=== PATIENT | female | born 1970 | race Caucasian/White ===

== ENCOUNTER 2020-09-20 12:12 | Emergency (ER) | payer BC, SELFPAY ==
[2020-09-20] VITALS (10 sets, daily range): BP systolic 124–174; BP diastolic 67–95; PULSE 79–120; RESP 16–22; TEMP 37.3; O2SAT 98–100; BMI 30.7
--- NOTE | 2020-09-20 12:32 | ED.PSYCH ---
HPI - Psych <Dario MeyersZOE - Last Filed: 09/21/20 00:22> General Chief Complaint: Psychiatric Symptoms Stated Complaint: visual and auditory perez. Source: patient and EMS Mode of arrival: Ambulatory Limitations: no limitations History of Present Illness HPI Narrative: This is a 50-year-old female, nonsmoker, who has past medical history significant for hypothyroidism, right-sided breast cancer and tumor removal, botulism presents to ED with [facility] with chief complain of confusion and visual and auditory hallucinations. Patient reports after drinking a can of coconut water and showered she noticed the symptoms. Patient had conversations with people (just working people) and saw snowing. She also spoke with her daughter but the daughter reminded the patient the conversation never happened. Patient recently moved to a new apartment a couple of weeks ago and moved from [place]. Patient reports slightly increased in stress. She is wondering her symptoms are due to mold in the shower. Patient denies the conversation is commanding her to do things. She denies suicidal all homicidal thoughts. The patient thought she had conversations with EMT crew before they actually got there. The patient denies taking other supplements or medications. Patient feels as she is in and out of reality. Patient reports mild headache in right-sided and denies history of migraine headaches. Otherwise, denies weakness to extremities, speech difficulty, dysphagia, or balance difficulty. LMP about a week ago. Patient denies using illicit drugs. Review of Systems <Dario MeyersZOE - Last Filed: 09/21/20 00:22> Review of Systems Narrative: General: Denies fever, chills, fatigue, malaise, sweats. HEENT: Denies sinus pain, ear pain, sore throat, difficulty swallowing, dizziness. Respiratory: Denies dyspnea, cough, wheezing, hemoptysis, sputum. Cardiovascular: Denies chest pain, palpitations, orthopnea, edema. Gastrointestinal: Denies nausea, vomiting, abdominal pain, diarrhea, constipation, melena. : Denies dysuria, frequency, incontinence, hematuria, urinary retention. Musculoskeletal: Denies weakness, joint pain or bony pain. Skin: Denies rash, skin lesions, or other. Neurologic: Denies weakness, headache, numbness, change in speech, confusion, seizures, incoordination. Psychiatric: See HPI 12-point review of systems is negative except for those stated above. Patient History <ZOE Hunter - Last Filed: 09/21/20 00:22> Medical History (Updated 09/20/20 @ 14:57 by ZOE Hunter) Botulism (Acute) Breast cancer (Acute) Hypothyroidism (Acute) Surgical History (Updated 09/20/20 @ 12:42 by ZOE Hunter) History of bilateral tubal ligation (Acute) History of elbow surgery (Acute) Social History Smoking Status: Never smoker Smoking Status: Never smoker alcohol intake frequency: holidays/special occasions only Substance Use Type: does not use Exam <ZOE Hunter - Last Filed: 09/21/20 00:22> Narrative Exam Narrative: GEN: Alert, oriented x 3, well appearing and nourished, and in tears during interview and appears to be apprehensive. Head: Normal cephalic, atraumatic. No scalp or temporal tenderness, palpable mass or rash. EYES: Pupils are equal, round, and reactive to light and accommodation. Extraocular muscles are intact bilaterally. There is no subconjunctival hemorrhage, exudate and sclera non-icteric. ENT: Bilateral auditory canals and tympanic membranes clear. Hearing grossly intact. Nose without bleeding, purulent discharge or deviation. Facial sinuses nontender to palpate. Mucous membrane moist, no mucosal lesion. Throat without erythema, tonsillar hypertrophy or exudate. Uvula in midline, airway patent. Neck: Trachea in midline. No JVD, non-tender without lymphadenopathy. No masses or thyroid megaly. Supple, non-tender and no meningeal signs. CARDIAC: Normal regular rate and rhythm without murmurs, gallops, or rubs. No chest wall tenderness. No peripheral edema, cyanosis or pallor. Capillary refill is less than 2 seconds. RESPIRATORY: Lungs are clear to auscultate bilaterally. No cough, wheezes, rales, or rhonchi. No stridor, respiratory distress, increase work of breathing, or accessary muscle used. ABD: Abdomen soft, nontender and non-distended. No guarding or rebound tenderness to palpate. Bowel sounds are normal in all 4 quadrants. There is no palpable masses or organomegaly. EXT: Full painless ROM of all extremities with no loss of sensation, strength, effusion or edema. SKIN: Warm, dry, normal color for patient. No erythema, lesions or rash over visible areas. BACK: Nontender without deformity or crepitance. No flank tenderness. NEUROLOGICAL: Alert and oriented to place, time and person. Sensation and motor function intact bilaterally. No facial droops, dysphasia. PSYCHIATRIC: Good judgement and reason, without hallucinations, occasionally tearful and anxious. Patient is not suicidal. Initial Vital Signs Initial Vital Signs: Vital Signs Temperature 99.2 F 09/20/20 12:13 Pulse Rate 120 H 09/20/20 12:13 Respiratory Rate 16 09/20/20 12:13 Blood Pressure 174/90 H 09/20/20 12:13 Pulse Oximetry 98 09/20/20 12:13 <Андрей Dixon DO - Last Filed: 09/24/20 18:20> Initial Vital Signs Initial Vital Signs: Vital Signs Temperature 99.2 F 09/20/20 12:13 Pulse Rate 120 H 09/20/20 12:13 Respiratory Rate 16 09/20/20 12:13 Blood Pressure 174/90 H 09/20/20 12:13 Pulse Oximetry 98 09/20/20 12:13 Scores <ZOE Hunter - Last Filed: 09/21/20 00:22> GCS Rissa coma scale eye opening: Spontaneous Walker coma scale verbal response: Orientated Walker coma scale motor response: Obey commands Walker coma scale total score: 15 Course <ZOE Hunter - Last Filed: 09/21/20 00:22> Orders Ordered: ED Orders 09/20/20 12:33 Urine Drug Screen, Rapid Stat 09/20/20 12:40 Complete Blood Count AUTO DIFF Stat Comprehensive Metabolic Panel Stat Ethanol (ETOH) Stat Thyroid Stimulating Hormone Stat Troponin & CK Cardiac Panel Stat 09/20/20 12:54 CT head/brain wo con Stat 09/20/20 13:35 EKG-12 Lead Stat 09/20/20 13:46 XR chest 1V Stat Reevaluation(s) Reevaluation #1: Patient reports still thinks she is having conversation in her head but not witnessed this by staff sitting outside room 11 for 1:1 monitor for other patient in room 13. Vital Signs Vital signs: Vital Signs - 8 hr 09/20/20 12:13 09/20/20 12:28 09/20/20 12:30 Temperature 99.2 F Pulse Rate 120 H 100 H 95 H Respiratory Rate 16 20 Blood Pressure 174/90 H 154/79 H Pulse Oximetry 98 98 09/20/20 13:00 09/20/20 13:01 09/20/20 13:22 Temperature Pulse Rate 111 H 88 84 Respiratory Rate 18 18 Blood Pressure 150/86 H 124/67 Pulse Oximetry 99 100 100 09/20/20 13:30 Temperature Pulse Rate 79 Respiratory Rate 18 Blood Pressure 126/70 Pulse Oximetry 100 <Андрей Dixon DO - Last Filed: 09/24/20 18:20> Orders Ordered: ED Orders 09/20/20 12:33 Urine Drug Screen, Rapid Stat 09/20/20 12:40 Complete Blood Count AUTO DIFF Stat Comprehensive Metabolic Panel Stat Ethanol (ETOH) Stat Thyroid Stimulating Hormone Stat Troponin & CK Cardiac Panel Stat 09/20/20 12:54 CT head/brain wo con Stat 09/20/20 13:35 EKG-12 Lead Stat 09/20/20 13:46 XR chest 1V Stat Vital Signs Vital signs: Vital Signs - 8 hr 09/20/20 12:13 09/20/20 12:28 09/20/20 12:30 Temperature 99.2 F Pulse Rate 120 H 100 H 95 H Respiratory Rate 16 20 Blood Pressure 174/90 H 154/79 H Pulse Oximetry 98 98 09/20/20 13:00 09/20/20 13:01 09/20/20 13:22 Temperature Pulse Rate 111 H 88 84 Respiratory Rate 18 18 Blood Pressure 150/86 H 124/67 Pulse Oximetry 99 100 100 09/20/20 13:30 Temperature Pulse Rate 79 Respiratory Rate 18 Blood Pressure 126/70 Pulse Oximetry 100 [facility] - Psych <ZOE Hunter - Last Filed: 09/21/20 00:22> Differential Diagnosis Differential diagnosis: Likely other (hyperthyroidism, hepatic disorder, Intracrainal mass, infectious disease, anxiety) Medical Records Attestation: I reviewed the patient's medical records. Lab Data Attestation: I reviewed the patient's lab results. Result diagrams: 09/20/20 12:40 09/20/20 12:40 Labs: Lab Results 09/20/20 09/20/20 09/20/20 Range/Units 12:33 12:40 12:40 WBC 5.9 (4.5-11.0) X10^3/uL RBC 4.86 (4.0-5.2) X10^6/uL Hgb 13.5 (12.0-16.0) g/dL Hct 40.8 (36-46) % MCV 83.8 (80-100) fL MCH 27.8 (26-34) PG MCHC 33.2 (30-36) % RDW 13.5 (11.6-14.8) % Plt Count 251 (150-400) X10^3/uL Neut % (Auto) 70.4 (50-75) % Lymph % (Auto) 21.1 L (25-40) % [place] % (Auto) 7.1 (3-14) % Eos % (Auto) 0.9 L (2-4) % Baso % (Auto) 0.5 (0-2) % Neut # (Auto) 4200 (3824-5509) /uL Lymph # (Auto) 1200 (1278-3040) /uL [place] # (Auto) 400 (0-900) /uL Eos # (Auto) 100 (0-450) /uL Baso # (Auto) 0 (0-100) /uL Sodium 140 (137-145) mmol/L Potassium 4.6 (3.4-5.1) mmol/L Chloride 105 (98-107) mmol/L Carbon Dioxide 28 (22-32) mmol/L BUN 10 (7-17) mg/dL Creatinine 0.76 (0.52-1.04) mg/dL Estimated GFR > 60.0 (>60) mL/min BUN/Creatinine Ratio 13.2 (6-22) Glucose 105 H (70-100) mg/dL Calcium 9.5 (8.4-10.2) mg/dL Total Bilirubin 0.3 (0.2-1.3) mg/dL AST 22 (14-36) IU/L ALT 18 (<35) IU/L Alkaline Phosphatase 73 (38-126) U/L Total Creatine Kinase (30-135) U/L CK-MB (CK-2) CK-MB (CK-2) Rel Index Troponin I (0.01-0.034) ng/mL Total Protein 7.5 (6.3-8.2) g/dL Albumin 4.4 (3.5-5.0) g/dL Globulin 3.1 (1.7-4.1) g/dL Albumin/Globulin Ratio 1.4 (1.0-2.8) TSH (0.47-4.68) uIU/mL U Opiates 300ng/mL cut Negative (Negative) Ur Oxycodone Screen Negative (Negative) Urine Methadone Screen Negative (Negative) Ur Barbiturates Screen Negative (Negative) U Tricyclic Antidepress Negative (Negative) Ur Phencyclidine Scrn Negative (Negative) Ur Amphetamines Screen Negative (Negative) U Methamphetamines Scrn Negative (Negative) Ur MDMA Scrn (Ecstasy) Negative (Negative) U Benzodiazepines Scrn Negative (Negative) Urine Cocaine Screen Negative (Negative) U Marijuana (THC) Screen Negative (Negative) Ethyl Alcohol < 10 ( - 10) mg/dL 09/20/20 09/20/20 Range/Units 12:40 12:40 WBC (4.5-11.0) X10^3/uL RBC (4.0-5.2) X10^6/uL Hgb (12.0-16.0) g/dL Hct (36-46) % MCV (80-100) fL MCH (26-34) PG MCHC (30-36) % RDW (11.6-14.8) % Plt Count (150-400) X10^3/uL Neut % (Auto) (50-75) % Lymph % (Auto) (25-40) % [place] % (Auto) (3-14) % Eos % (Auto) (2-4) % Baso % (Auto) (0-2) % Neut # (Auto) (4211-8192) /uL Lymph # (Auto) (2364-5950) /uL [place] # (Auto) (0-900) /uL Eos # (Auto) (0-450) /uL Baso # (Auto) (0-100) /uL Sodium (137-145) mmol/L Potassium (3.4-5.1) mmol/L Chloride (98-107) mmol/L Carbon Dioxide (22-32) mmol/L BUN (7-17) mg/dL Creatinine (0.52-1.04) mg/dL Estimated GFR (>60) mL/min BUN/Creatinine Ratio (6-22) Glucose (70-100) mg/dL Calcium (8.4-10.2) mg/dL Total Bilirubin (0.2-1.3) mg/dL AST (14-36) IU/L ALT (<35) IU/L Alkaline Phosphatase (38-126) U/L Total Creatine Kinase 76 (30-135) U/L CK-MB (CK-2) TNP CK-MB (CK-2) Rel Index TNP Troponin I < 0.012 (0.01-0.034) ng/mL Total Protein (6.3-8.2) g/dL Albumin (3.5-5.0) g/dL Globulin (1.7-4.1) g/dL Albumin/Globulin Ratio (1.0-2.8) TSH 4.62 (0.47-4.68) uIU/mL U Opiates 300ng/mL cut (Negative) Ur Oxycodone Screen (Negative) Urine Methadone Screen (Negative) Ur Barbiturates Screen (Negative) U Tricyclic Antidepress (Negative) Ur Phencyclidine Scrn (Negative) Ur Amphetamines Screen (Negative) U Methamphetamines Scrn (Negative) Ur MDMA Scrn (Ecstasy) (Negative) U Benzodiazepines Scrn (Negative) Urine Cocaine Screen (Negative) U Marijuana (THC) Screen (Negative) Ethyl Alcohol ( - 10) mg/dL Point of Care Testing Test Results Negative Glucose POC 91 Urine Dip Bedside Urine Glucose Negative Bedside Urine Bilirubin - Negative Bedside Urine Ketone - Negative Urine Specific [place] 1.015 Bedside Urine Occult Blood - Negative Bedside Urine pH 6.0 Bedside Urine Protein - Negative Bedside Urine Leukocytes - Negative Esterase Imaging Data CT scan - head: Radiologist's Impression: [address] [address] [address] Scan Report Signed Patient: Roman Palacios#: [id number] : 1970Acct:[id number] Age/Sex: 50 / FDate of Service: 09/20/20 Loc: ED Accession Number: [id number] Procedure: CT head/brain wo con Ordering Provider: Dario Meyers PROCEDURE: CT HEAD/BRAIN WO CON INDICATIONS: Hallucinations TECHNIQUE: Noncontrast 4.5 mm thick angled axial sections acquired from the foramen magnum to the vertex, with coronal and sagittal reformats. For radiation dose reduction, the following was used: automated exposure control, adjustment of mA and/or kV according to patient size. COMPARISON: None. FINDINGS: Image quality: Excellent. CSF spaces: Basal cisterns are patent. No extra-axial fluid collections. Ventricles are normal in size and shape. Brain: No midline shift. No intracranial masses or hemorrhage. Ryan-white matter interface is normal. Skull and face: Calvarium and visualized facial bones are intact, without suspicious lesions. Sinuses: Visualized sinuses and mastoids are clear. IMPRESSION: No acute finding. Dictated by: Mike Pierre M.D. on 09/20/2020 at 13:10 Approved by: Mike Pierre M.D. on 09/20/2020 at 13:11 Chest x-ray: Radiologist's Impression: [place] [address] XRay Report Signed Patient: Roman Palacios#: [id number] : 1970Acct:[id number] Age/Sex: 50 / FDate of Service: 09/20/20 Loc: ED Accession Number: [id number] Procedure: XR chest 1V Ordering Provider: Dario Meyers PROCEDURE: XR CHEST 1V INDICATIONS: abnormal ekg TECHNIQUE: One view of the chest was acquired. COMPARISON: None. FINDINGS: Surgical changes and devices: None. Lungs and pleura: Lungs are clear. No pleural effusions or pneumothorax. Mediastinum: Mediastinal contours appear normal. Heart size is normal. Bones and chest wall: No suspicious bony lesions. Overlying soft tissues appear unremarkable. IMPRESSION: Mildly reduced inspiratory volume, no acute disease found. Dictated by: Win Curtis M.D. on 09/20/2020 at 14:20 Approved by: Win Curtis M.D. on 09/20/2020 at 14:20 ECG Data Attestation: I personally reviewed and interpreted this ECG as follows: Prior ECG tracings: not available for review Interpretation: Left bundle branch block rate at 77. Left dominant axis. MN interval 130, QRS duration 146, QT/QTC 396/448 MDM Narrative Medical decision making narrative: This is a 50-year-old female who was brought in by local EMS with feeling of sam-vu. Patient remembers having conversation with others and saw snowing today but turns out to be not. Patient's physical exam is unremarkable. Patient is alert and oriented x3 and appropriate. CT of head shows no acute findings for organic etiology. No indications for infection with normal white count. UDS was negative and denies taking substances or new medications. Liver function test was normal without hepatic abnormality. Patient has hypothyroidism and currently takes levothyroxine. TSH is within normal upper limit today of 4.62. Patient reports in the past thyroid medication had to be adjusted and increased due to confusion. Patient advised to follow-up with new primary care physician with TSH. EKG with left bundle-branch block. No previous EKGs available but patient states in the past she was told her cardiac rhythm is abnormal due to botulism. A copy of EKG from today provided to patient to follow-up with a new primary care physician. Patient recently [place] [facility] [place] and is concerned for mold in her house. Patient advised to f/u on evaluation of mold in her house, carbon monoxide if this is patient's concerns. Return precautions were discussed with patient verbalized understanding in agreement with the treatment plan. <Андрей Dixon, DO - Last Filed: 09/24/20 18:20> Lab Data Labs: Lab Results 09/20/20 09/20/20 09/20/20 Range/Units 12:33 12:40 12:40 WBC 5.9 (4.5-11.0) X10^3/uL RBC 4.86 (4.0-5.2) X10^6/uL Hgb 13.5 (12.0-16.0) g/dL Hct 40.8 (36-46) % MCV 83.8 (80-100) fL MCH 27.8 (26-34) PG MCHC 33.2 (30-36) % RDW 13.5 (11.6-14.8) % Plt Count 251 (150-400) X10^3/uL Neut % (Auto) 70.4 (50-75) % Lymph % (Auto) 21.1 L (25-40) % [place] % (Auto) 7.1 (3-14) % Eos % (Auto) 0.9 L (2-4) % Baso % (Auto) 0.5 (0-2) % Neut # (Auto) 4200 (0670-9869) /uL Lymph # (Auto) 1200 (9197-4216) /uL [place] # (Auto) 400 (0-900) /uL Eos # (Auto) 100 (0-450) /uL Baso # (Auto) 0 (0-100) /uL Sodium 140 (137-145) mmol/L Potassium 4.6 (3.4-5.1) mmol/L Chloride 105 (98-107) mmol/L Carbon Dioxide 28 (22-32) mmol/L BUN 10 (7-17) mg/dL Creatinine 0.76 (0.52-1.04) mg/dL Estimated GFR > 60.0 (>60) mL/min BUN/Creatinine Ratio 13.2 (6-22) Glucose 105 H (70-100) mg/dL Calcium 9.5 (8.4-10.2) mg/dL Total Bilirubin 0.3 (0.2-1.3) mg/dL AST 22 (14-36) IU/L ALT 18 (<35) IU/L Alkaline Phosphatase 73 (38-126) U/L Total Creatine Kinase (30-135) U/L CK-MB (CK-2) CK-MB (CK-2) Rel Index Troponin I (0.01-0.034) ng/mL Total Protein 7.5 (6.3-8.2) g/dL Albumin 4.4 (3.5-5.0) g/dL Globulin 3.1 (1.7-4.1) g/dL Albumin/Globulin Ratio 1.4 (1.0-2.8) TSH (0.47-4.68) uIU/mL U Opiates 300ng/mL cut Negative (Negative) Ur Oxycodone Screen Negative (Negative) Urine Methadone Screen Negative (Negative) Ur Barbiturates Screen Negative (Negative) U Tricyclic Antidepress Negative (Negative) Ur Phencyclidine Scrn Negative (Negative) Ur Amphetamines Screen Negative (Negative) U Methamphetamines Scrn Negative (Negative) Ur MDMA Scrn (Ecstasy) Negative (Negative) U Benzodiazepines Scrn Negative (Negative) Urine Cocaine Screen Negative (Negative) U Marijuana (THC) Screen Negative (Negative) Ethyl Alcohol < 10 ( - 10) mg/dL 09/20/20 09/20/20 Range/Units 12:40 12:40 WBC (4.5-11.0) X10^3/uL RBC (4.0-5.2) X10^6/uL Hgb (12.0-16.0) g/dL Hct (36-46) % MCV (80-100) fL MCH (26-34) PG MCHC (30-36) % RDW (11.6-14.8) % Plt Count (150-400) X10^3/uL Neut % (Auto) (50-75) % Lymph % (Auto) (25-40) % [place] % (Auto) (3-14) % Eos % (Auto) (2-4) % Baso % (Auto) (0-2) % Neut # (Auto) (4192-8493) /uL Lymph # (Auto) (2907-6714) /uL [place] # (Auto) (0-900) /uL Eos # (Auto) (0-450) /uL Baso # (Auto) (0-100) /uL Sodium (137-145) mmol/L Potassium (3.4-5.1) mmol/L Chloride (98-107) mmol/L Carbon Dioxide (22-32) mmol/L BUN (7-17) mg/dL Creatinine (0.52-1.04) mg/dL Estimated GFR (>60) mL/min BUN/Creatinine Ratio (6-22) Glucose (70-100) mg/dL Calcium (8.4-10.2) mg/dL Total Bilirubin (0.2-1.3) mg/dL AST (14-36) IU/L ALT (<35) IU/L Alkaline Phosphatase (38-126) U/L Total Creatine Kinase 76 (30-135) U/L CK-MB (CK-2) TNP CK-MB (CK-2) Rel Index TNP Troponin I < 0.012 (0.01-0.034) ng/mL Total Protein (6.3-8.2) g/dL Albumin (3.5-5.0) g/dL Globulin (1.7-4.1) g/dL Albumin/Globulin Ratio (1.0-2.8) TSH 4.62 (0.47-4.68) uIU/mL U Opiates 300ng/mL cut (Negative) Ur Oxycodone Screen (Negative) Urine Methadone Screen (Negative) Ur Barbiturates Screen (Negative) U Tricyclic Antidepress (Negative) Ur Phencyclidine Scrn (Negative) Ur Amphetamines Screen (Negative) U Methamphetamines Scrn (Negative) Ur MDMA Scrn (Ecstasy) (Negative) U Benzodiazepines Scrn (Negative) Urine Cocaine Screen (Negative) U Marijuana (THC) Screen (Negative) Ethyl Alcohol ( - 10) mg/dL Point of Care Testing Test Results Negative Glucose POC 91 Urine Dip Bedside Urine Glucose Negative Bedside Urine Bilirubin - Negative Bedside Urine Ketone - Negative Urine Specific [place] 1.015 Bedside Urine Occult Blood - Negative Bedside Urine pH 6.0 Bedside Urine Protein - Negative Bedside Urine Leukocytes - Negative Esterase Discharge Plan Departure Patient Disposition: Home Clinical Impression: Confusion Discharge Date/Time: 09/20/20 15:05 Instructions: Delirium Activity Restrictions/Additional Instructions: You have been diagnosed with [confusion. Head CT and Chest xray were negative for acute findings. NO indications for infection, electrolytes imbalance. Urine drug screen was negative. TSH today was 4.62. EKG shows left bundle branch block and were not able to compare since we do not have old EKG. Cardiac enzymes were negative. Physical exam were unremarkable.]. What to do: *Take your medications as directed. *Follow up with your primary care provider in 2-3 days, call for an appointment. Let them know you were seen in the ED and that we asked you to be seen in follow up. Please arrange primary care physician that you can follow-up with thyroid test. *Return to ED if you have any new, worsening, or concerning symptoms, such as [chest pain, breathing difficulty, fever, weakness to 1 side of body, severe headache, facial droops, speech difficulty, seizure activities, unable to tolerate fluids or any acute concerns]. Referrals: [facility] [Outside] <Андрей Dixon, - Last Filed: 09/24/20 18:20> Cosign ED Attending Elijah Attestation: Dr Dixon Co-Sign Statement: I was available for consultation during this patient's emergency department visit. This chart is signed by myself for administrative purposes only. I did not have direct contact with this patient during this visit. They were seen independently by the APC.
[2020-09-20 12:39] LABS: UR Morphine/Opiate cutoff 300 Negative (Negative); Ur Creatinine Normal (Normal); Ur Specific Gravity Normal (Normal); Urine Amphetamines Negative (Negative); Urine Barbiturates Negative (Negative); Urine Benzodiazepines Negative (Negative); Urine Cocaine Negative (Negative); Urine MDMA Negative (Negative); Urine Methadone Negative (Negative); Urine Methamphetamines Negative (Negative); Urine Oxycodone Negative (Negative); Urine Phencyclidine Negative (Negative); Urine Tetrahydrocannabinol Negative (Negative); Urine Tricyclic Antidepressant Negative (Negative); Urine pH Normal (Normal)
[2020-09-20 12:51] LABS: Add Manual Diff / Slide Review NO; Basophils Absolute Auto 0 /uL (0-100); Basophils Percent Auto 0.5 % (0-2); Eosinophils Absolute Auto 100 /uL (0-450); Eosinophils Percent Auto 0.9 % (2-4); Hematocrit 40.8 % (36-46); Hemoglobin 13.5 g/dL (12.0-16.0); Lymphocytes Absolute Auto 1200 /uL (1100-4500); Lymphocytes Percent Auto 21.1 % (25-40); Mean Corpuscular HGB Conc 33.2 % (30-36); Mean Corpuscular Hemoglobin 27.8 PG (26-34); Mean Corpuscular Volume 83.8 fL (80-100); Monocytes Absolute Auto 400 /uL (0-900); Monocytes Percent Auto 7.1 % (3-14); Neutrophils Absolute Auto 4200 /uL (1500-7000); Neutrophils Percent Auto 70.4 % (50-75); Platelet Count 251 X10^3/uL (150-400); Red Blood Cell Count 4.86 X10^6/uL (4.0-5.2); Red Cell Distribution Width 13.5 % (11.6-14.8); White Blood Cell Count 5.9 X10^3/uL (4.5-11.0)
--- NOTE | 2020-09-20 12:54 | DI.CT.S_ITS ---
PROCEDURE: CT HEAD/BRAIN WO CON INDICATIONS: Hallucinations TECHNIQUE: Noncontrast 4.5 mm thick angled axial sections acquired from the foramen magnum to the vertex, with coronal and sagittal reformats. For radiation dose reduction, the following was used: automated exposure control, adjustment of mA and/or kV according to patient size. COMPARISON: None. FINDINGS: Image quality: Excellent. CSF spaces: Basal cisterns are patent. No extra-axial fluid collections. Ventricles are normal in size and shape. Brain: No midline shift. No intracranial masses or hemorrhage. Ryan-white matter interface is normal. Skull and face: Calvarium and visualized facial bones are intact, without suspicious lesions. Sinuses: Visualized sinuses and mastoids are clear. IMPRESSION: No acute finding. Dictated by: Mike Pierre M.D. on 09/20/2020 at 13:10 Approved by: Mike Pierre M.D. on 09/20/2020 at 13:11
[2020-09-20 13:01] LABS: Alanine Aminotransferase 18 IU/L (<35); Albumin 4.4 g/dL (3.5-5.0); Albumin Globulin Ratio 1.4 (1.0-2.8); Alkaline Phosphatase 73 U/L (38-126); Aspartate Aminotransferase 22 IU/L (14-36); BUN Creatinine Ratio 13.2 (6-22); Bilirubin Total 0.3 mg/dL (0.2-1.3); Blood Urea Nitrogen 10 mg/dL (7-17); Calcium 9.5 mg/dL (8.4-10.2); Carbon Dioxide 28 mmol/L (22-32); Chloride 105 mmol/L (98-107); Estimated Glomerular Filt Rate > 60.0 mL/min (>60); Ethanol (ETOH) < 10 mg/dL; Globulin 3.1 g/dL (1.7-4.1); Glucose 105 mg/dL (70-100); HEMOLYSIS < 15 (0-50); Potassium 4.6 mmol/L (3.4-5.1); Sodium 140 mmol/L (137-145); Total Protein 7.5 g/dL (6.3-8.2)
--- NOTE | 2020-09-20 13:46 | DI.RAD.S_ITS ---
PROCEDURE: XR CHEST 1V INDICATIONS: abnormal ekg TECHNIQUE: One view of the chest was acquired. COMPARISON: None. FINDINGS: Surgical changes and devices: None. Lungs and pleura: Lungs are clear. No pleural effusions or pneumothorax. Mediastinum: Mediastinal contours appear normal. Heart size is normal. Bones and chest wall: No suspicious bony lesions. Overlying soft tissues appear unremarkable. IMPRESSION: Mildly reduced inspiratory volume, no acute disease found. Dictated by: Win Curtis M.D. on 09/20/2020 at 14:20 Approved by: Win Curtis M.D. on 09/20/2020 at 14:20
[2020-09-20 14:09] LABS: Creatine Kinase 76 U/L (30-135)
[2020-09-20 14:12] LABS: Thyroid Stimulating Hormone 4.62 uIU/mL (0.47-4.68)
[2020-09-20 14:22] LABS: Troponin I < 0.012 ng/mL (0.01-0.034)
== END 2020-09-20 15:05 | disposition home or self-care (01) ==
PROVIDERS: Emergency Provider Nurse Practitioner Family
DX: R41.0 Disorientation, unspecified (principal); R94.31 Abnormal electrocardiogram [ECG] [EKG]; R44.0 Auditory hallucinations; R44.1 Visual hallucinations
CPT/HCPCS: 36415; 70450; 71045; 80053; 80305; 80320; 81003; 81025; 82550; 82962; 84443; 84484; 85025; 93005; 99283; 99284

== ENCOUNTER 2020-09-30 15:43 | Emergency (ER) | payer BC, SELFPAY ==
[2020-09-30] VITALS (8 sets, daily range): BP systolic 130–158; BP diastolic 64–74; PULSE 69–80; RESP 17–24; O2SAT 98–100; BMI 31.4
--- NOTE | 2020-09-30 16:11 | DI.RAD.S_ITS ---
PROCEDURE: XR CHEST 1V INDICATIONS: left side chest pain TECHNIQUE: One view of the chest was acquired. COMPARISON: [facility], , XR CHEST 1V, 09/20/2020, 13:54. FINDINGS: Surgical changes and devices: None. Lungs and pleura: Lungs are clear. No pleural effusions or pneumothorax. Mediastinum: Mediastinal contours appear normal. Heart size is normal. Bones and chest wall: No suspicious bony lesions. Overlying soft tissues appear unremarkable. IMPRESSION: No acute cardiopulmonary process is seen. Dictated by: Toñito Gaines M.D. on 09/30/2020 at 15:46 Approved by: Toñito Gaines M.D. on 09/30/2020 at 15:46
--- NOTE | 2020-09-30 16:25 | ED.CHESTPAIN ---
HPI - Chest Pain <Dario MaoDeandra [facility] - Last Filed: 09/30/20 19:44> General Chief Complaint: Chest Pain Stated Complaint: sent by doc. work up for cardiac problem Time Seen by Provider: 09/30/20 16:03 Source: patient Mode of arrival: Ambulatory Limitations: no limitations History of Present Illness HPI narrative: This is a 50-year-old female, nonsmoker, who has past medical history significant for botulism, hypothyroidism, newly diagnosed with hypertension presents to ED was referred from new primary care provider Elizabeth Vyas for cardiac workup done. Patient reports she has been having left-sided near the sternal border discomfort daily for 5-6 months. Patient reports slight dyspnea with exertion as walking up stairs or long distance. Patient also reports dependent ankle swelling when she sits on a chair prolonged time. Patient reports when she rubs on affected side in her chest it improved her pain. Patient denies chest discomfort related to changing in position. Patient also reports lightheadedness all the time. Patient has not started her blood pressure medication at this time and is not able to recall blood pressure reading at the clinic today. Patient states I am not sure why I am here, I didn't want to come in and she contributes her symptoms to I think it's my anxiety since it has been going on for months and daily. Patient was seen on 09/20/2020 with confusion and sam vu like symptoms and had comprehensive work up done at that time including cardiac enzymes which were negative. Patient stated at that time, has history of abnormal EKG after the Botulism, affected my heart. Related Data Allergies Allergy/AdvReac Type Severity Reaction Status Date / Time Sulfa (Sulfonamide Allergy Verified 09/30/20 15:47 Antibiotics) Review of Systems <Dario MaoDeandra [employer] - Last Filed: 09/30/20 19:44> Review of Systems Narrative: General: Denies fever, chills, fatigue, malaise, sweats. HEENT: Denies sinus pain, ear pain, sore throat, difficulty swallowing, dizziness. Respiratory: Denies dyspnea, cough, wheezing, hemoptysis, sputum. Cardiovascular: See HPI Gastrointestinal: Denies nausea, vomiting, abdominal pain, diarrhea, constipation, melena. : Denies dysuria, frequency, incontinence, hematuria, urinary retention. Musculoskeletal: Denies weakness, joint pain or bony pain. Skin: Denies rash, skin lesions, or other. Neurologic: Denies weakness, headache, numbness, change in speech, confusion, seizures, incoordination. Psychiatric: No concerning psychosocial issues. 12-point review of systems is negative except for those stated above. Patient History <ZOE Hunter - Last Filed: 09/30/20 19:44> Medical History Botulism History of benign breast tumor Hypothyroidism Surgical History History of bilateral tubal ligation History of elbow surgery Social History Smoking Status: Never smoker Smoking Status: Never smoker alcohol intake frequency: a few times a week Substance Use Type: does not use Exam <ZOE Hunter - Last Filed: 09/30/20 19:44> Narrative Exam Narrative: GEN: Alert, oriented x 3, well appearing and nourished, and in no acute distress. Head: Normal cephalic, atraumatic. No scalp or temporal tenderness, palpable mass or rash. EYES: Pupils are equal, round, and reactive to light and accommodation. Extraocular muscles are intact bilaterally. There is no subconjunctival hemorrhage, exudate and sclera non-icteric. ENT: Hearing grossly intact. Nose without bleeding, purulent discharge or deviation. Mucous membrane moist, no mucosal lesion. Throat without erythema, tonsillar hypertrophy or exudate. Uvula in midline, airway patent. Neck: Trachea in midline. No JVD, non-tender without lymphadenopathy. No masses or thyroid megaly. Supple, non-tender and no meningeal signs. CARDIAC: Normal regular rate and rhythm without murmurs, gallops, or rubs. No chest wall tenderness. No peripheral edema, cyanosis or pallor. Capillary refill is less than 2 seconds. RESPIRATORY: Lungs are clear to auscultate bilaterally. No cough, wheezes, rales, or rhonchi. No stridor, respiratory distress, increase work of breathing, or accessary muscle used. ABD: Abdomen soft, nontender and non-distended. No guarding or rebound tenderness to palpate. Bowel sounds are normal in all 4 quadrants. There is no palpable masses or organomegaly. EXT: Full painless ROM of all extremities with no loss of sensation, strength, effusion or edema. SKIN: Warm, dry, normal color for patient. No erythema, lesions or rash over visible areas. BACK: Nontender without deformity or crepitance. No flank tenderness. NEUROLOGICAL: Alert and oriented to place, time and person. Sensation and motor function intact bilaterally. No facial droops, dysphasia. PSYCHIATRIC: Good judgement and reason, without hallucinations, abnormal affect or abnormal behaviors during the examination. Patient is not suicidal. Initial Vital Signs Initial Vital Signs: Vital Signs Pulse Rate 73 09/30/20 15:47 Respiratory Rate 18 09/30/20 15:47 Blood Pressure 158/74 H 09/30/20 15:47 Pulse Oximetry 100 09/30/20 15:47 <Edilma Loya DO - Last Filed: 10/02/20 18:41> Initial Vital Signs Initial Vital Signs: Vital Signs Pulse Rate 73 09/30/20 15:47 Respiratory Rate 18 09/30/20 15:47 Blood Pressure 158/74 H 09/30/20 15:47 Pulse Oximetry 100 09/30/20 15:47 Scores <ZOE Hunter - Last Filed: 09/30/20 19:44> GCS Rissa coma scale eye opening: Spontaneous Hinton coma scale verbal response: Orientated Rissa coma scale motor response: Obey commands Rissa coma scale total score: 15 HEART Score Heart Score history: Slightly Suspicious Heart Score EKG: Non-Specific repolarization disturbance Heart Score Age: 45-64 years old Heart Score risk factors: 1-2 risk factors Heart Score troponin: < or = to normal limit Heart Score Total: 3 Wells' Criteria for PE Clinical signs and symptoms of DVT: No PE is #1 Dx or equally likely: No Heart rate > 100: Yes Immobilization at least 3 days or surg in previous 4 weeks: No History of PE or DVT: No Hemoptysis: No Malignancy w/Treatment within 6 months or palliative: No Wells' PE Score total: 1.5 Course <ZOE Hunter - Last Filed: 09/30/20 19:44> Orders Ordered: Discontinued Medications Aspirin (Aspirin 81 Mg Chew Tab) 324 mg PO NOW ONE Stop: 09/30/20 16:12 Last Admin: 09/30/20 16:45 Dose: 324 mg Documented by: CVANCE Reevaluation(s) Reevaluation #1: Patient reports she is comfortable at this time and declined any medications. Patient expressing would like to leave ED since I don't know why I am here but advised for repeat at least one more Troponin to repeat in 2-hour and if this looks good then her PCP can follow up outpatiently for further cardiac work up. Time: 18:53 Vital Signs Vital signs: Vital Signs - 8 hr 09/30/20 15:47 09/30/20 17:33 09/30/20 19:07 Pulse Rate 73 72 71 Respiratory Rate 18 19 24 Blood Pressure 158/74 H 132/64 130/70 Pulse Oximetry 100 100 100 <Edilma Loya DO - Last Filed: 10/02/20 18:41> Orders Ordered: Discontinued Medications Aspirin (Aspirin 81 Mg Chew Tab) 324 mg PO NOW ONE Stop: 09/30/20 16:12 Last Admin: 09/30/20 16:45 Dose: 324 mg Documented by: CVANCE Vital Signs Vital signs: Vital Signs - 8 hr 09/30/20 15:47 09/30/20 17:33 09/30/20 19:07 Pulse Rate 73 72 71 Respiratory Rate 18 19 24 Blood Pressure 158/74 H 132/64 130/70 Pulse Oximetry 100 100 100 MDM - Chest Pain <ZOE Hunter - Last Filed: 09/30/20 19:44> Differential Diagnosis Differential diagnosis: Likely stable angina, unstable angina pectoris, atypical chest pain, costochondritis and other (IL, NSTEMI, anxiety, pericarditis) Medical Records Data Attestation: I reviewed the patient's medical records. Lab Data Attestation: I reviewed the patient's lab results. Result diagrams: 09/30/20 16:41 09/30/20 16:41 Labs: Lab Results 09/30/20 09/30/20 09/30/20 Range/Units 16:41 16:41 16:41 WBC 6.0 (4.5-11.0) X10^3/uL RBC 4.77 (4.0-5.2) X10^6/uL Hgb 13.3 (12.0-16.0) g/dL Hct 40.1 (36-46) % MCV 84.0 (80-100) fL MCH 27.8 (26-34) PG MCHC 33.1 (30-36) % RDW 13.5 (11.6-14.8) % Plt Count 228 (150-400) X10^3/uL Neut % (Auto) 61.2 (50-75) % Lymph % (Auto) 28.4 (25-40) % Hoke % (Auto) 8.4 (3-14) % Eos % (Auto) 1.5 L (2-4) % Baso % (Auto) 0.5 (0-2) % Neut # (Auto) 3700 (4934-4565) /uL Lymph # (Auto) 1700 (9777-2375) /uL Hoke # (Auto) 500 (0-900) /uL Eos # (Auto) 100 (0-450) /uL Baso # (Auto) 0 (0-100) /uL PT 11.6 (10.1-12.7) SECONDS INR 1.0 (0.9-1.3) APTT 34 (26.4-36.2) SECONDS D-Dimer (<230) ng/mL Sodium 137 (137-145) mmol/L Potassium 4.7 (3.4-5.1) mmol/L Chloride 102 (98-107) mmol/L Carbon Dioxide 31 (22-32) mmol/L BUN 14 (7-17) mg/dL Creatinine 0.74 (0.52-1.04) mg/dL Estimated GFR > 60.0 (>60) mL/min BUN/Creatinine Ratio 18.9 (6-22) Glucose 93 (70-100) mg/dL Calcium 9.5 (8.4-10.2) mg/dL Total Bilirubin 0.6 (0.2-1.3) mg/dL AST 33 (14-36) IU/L ALT 16 (<35) IU/L Alkaline Phosphatase 60 (38-126) U/L Total Creatine Kinase 68 (30-135) U/L CK-MB (CK-2) TNP CK-MB (CK-2) Rel Index TNP Troponin I 0.012 (0.01-0.034) ng/mL NT-Pro-B Natriuret Pep (<125) pg/mL Total Protein 7.7 (6.3-8.2) g/dL Albumin 4.4 (3.5-5.0) g/dL Globulin 3.3 (1.7-4.1) g/dL Albumin/Globulin Ratio 1.3 (1.0-2.8) Lipase 93 (23-300) U/L 09/30/20 09/30/20 09/30/20 Range/Units 16:41 16:41 18:55 WBC (4.5-11.0) X10^3/uL RBC (4.0-5.2) X10^6/uL Hgb (12.0-16.0) g/dL Hct (36-46) % MCV (80-100) fL MCH (26-34) PG MCHC (30-36) % RDW (11.6-14.8) % Plt Count (150-400) X10^3/uL Neut % (Auto) (50-75) % Lymph % (Auto) (25-40) % Hoke % (Auto) (3-14) % Eos % (Auto) (2-4) % Baso % (Auto) (0-2) % Neut # (Auto) (6405-0744) /uL Lymph # (Auto) (9819-5140) /uL Hoke # (Auto) (0-900) /uL Eos # (Auto) (0-450) /uL Baso # (Auto) (0-100) /uL PT (10.1-12.7) SECONDS INR (0.9-1.3) APTT (26.4-36.2) SECONDS D-Dimer < 200 (<230) ng/mL Sodium (137-145) mmol/L Potassium (3.4-5.1) mmol/L Chloride (98-107) mmol/L Carbon Dioxide (22-32) mmol/L BUN (7-17) mg/dL Creatinine (0.52-1.04) mg/dL Estimated GFR (>60) mL/min BUN/Creatinine Ratio (6-22) Glucose (70-100) mg/dL Calcium (8.4-10.2) mg/dL Total Bilirubin (0.2-1.3) mg/dL AST (14-36) IU/L ALT (<35) IU/L Alkaline Phosphatase (38-126) U/L Total Creatine Kinase (30-135) U/L CK-MB (CK-2) CK-MB (CK-2) Rel Index Troponin I < 0.012 (0.01-0.034) ng/mL NT-Pro-B Natriuret Pep 40 (<125) pg/mL Total Protein (6.3-8.2) g/dL Albumin (3.5-5.0) g/dL Globulin (1.7-4.1) g/dL Albumin/Globulin Ratio (1.0-2.8) Lipase (23-300) U/L Point of Care Testing Test Results Negative Urine Dip Bedside Urine Glucose Negative Bedside Urine Bilirubin - Negative Bedside Urine Ketone - Negative Urine Specific [place] 1.010 Bedside Urine Occult Blood - Negative Bedside Urine pH 6.0 Bedside Urine Protein - Negative Bedside Urine Urobilinogen +/- 1mg Bedside Urine Nitrite - Negative Bedside Urine Leukocytes - Negative Esterase Imaging Data Chest x-ray: Radiologist's Impression: [address] [id number] ReportSigned Patient: Roman Palacios#: [id number]: 1970Acct:[id number]/Sex: 50 / FDate of Service: 09/30/20Loc: EDAccession Number: [id number] Procedure: XR chest 1V Ordering Provider: Dario Meyers PROCEDURE: XR CHEST 1V INDICATIONS: left side chest pain TECHNIQUE: One view of the chest was acquired. COMPARISON: [facility], XR CHEST 1V, 09/20/2020, 13:54. FINDINGS: Surgical changes and devices: None. Lungs and pleura: Lungs are clear. No pleural effusions or pneumothorax. Mediastinum: Mediastinal contours appear normal. Heart size is normal. Bones and chest wall: No suspicious bony lesions. Overlying soft tissues appear unremarkable. IMPRESSION: No acute cardiopulmonary process is seen. Dictated by: Toñito Gaines M.D. on 09/30/2020 at 15:46 Approved by: Toñito Gaines M.D. on 09/30/2020 at 15:46 ECG Data Attestation: I personally reviewed and interpreted this ECG as follows: Prior ECG tracings: available for review Interpretation: Normal sinus rhythm with left bundle branch block rate at 73. Left dominant axis. UT interval 132, QRS duration 140, QT/QTC 400/440. Abnormal ECG. No chagne from previous EKG on 09/20/2020. MDM Narrative Medical decision making narrative: This is a 50 year female presents to ED for a cardiac work up and sent to ED by her PCP MEL Kauffman for ongoing chest pain, exertional short of breath, and dizziness for months which patient is contributing to anxiety. Physical exam is unremarkable. Initial blood pressure elevated to 174/90 with tachycardia of 120 which became more normalized in ED at rest. Blood pressure is 130/70 with heart rate in 71 and O2 sat of 100% in room air. Heart score is 3 (low) and Wells criteria for PE score is 1.5. Patient's EKG is normal sinus rhythm with left bundle branch block rate at 73 which is similar to previous EKG on September 20, 2020. Stable H&H of 13.3/40.1 with no leukocytosis of white count 6.0. Normal coag test. First cardiac enzymes was negative. Given patient has lightheadedness and initial tachycardia, concerned for pulmonary embolism and D-dimer was ordered and obtained with negative result. Chest x-ray findings without acute cardiopulmonary process. No changes in discomfort by changing in position to consider pericarditis. Second cardiac enzyme was again negative. Given patient has 2 sets of negative cardiac enzymes with no changes in EKG in our records, she is recommended to follow-up with her PCP for further cardiac work up. Discussed return precautions and she verbalized understanding in agreement with the treatment plan. We discussed monitoring blood pressure around same time daily for several days and 2 tract this to talk to PCP. <Edilma Loya, DO - Last Filed: 10/02/20 18:41> Lab Data Labs: Lab Results 09/30/20 09/30/20 09/30/20 Range/Units 16:41 16:41 16:41 WBC 6.0 (4.5-11.0) X10^3/uL RBC 4.77 (4.0-5.2) X10^6/uL Hgb 13.3 (12.0-16.0) g/dL Hct 40.1 (36-46) % MCV 84.0 (80-100) fL MCH 27.8 (26-34) PG MCHC 33.1 (30-36) % RDW 13.5 (11.6-14.8) % Plt Count 228 (150-400) X10^3/uL Neut % (Auto) 61.2 (50-75) % Lymph % (Auto) 28.4 (25-40) % Hoke % (Auto) 8.4 (3-14) % Eos % (Auto) 1.5 L (2-4) % Baso % (Auto) 0.5 (0-2) % Neut # (Auto) 3700 (7946-2109) /uL Lymph # (Auto) 1700 (9481-7082) /uL Hoke # (Auto) 500 (0-900) /uL Eos # (Auto) 100 (0-450) /uL Baso # (Auto) 0 (0-100) /uL PT 11.6 (10.1-12.7) SECONDS INR 1.0 (0.9-1.3) APTT 34 (26.4-36.2) SECONDS D-Dimer (<230) ng/mL Sodium 137 (137-145) mmol/L Potassium 4.7 (3.4-5.1) mmol/L Chloride 102 (98-107) mmol/L Carbon Dioxide 31 (22-32) mmol/L BUN 14 (7-17) mg/dL Creatinine 0.74 (0.52-1.04) mg/dL Estimated GFR > 60.0 (>60) mL/min BUN/Creatinine Ratio 18.9 (6-22) Glucose 93 (70-100) mg/dL Calcium 9.5 (8.4-10.2) mg/dL Total Bilirubin 0.6 (0.2-1.3) mg/dL AST 33 (14-36) IU/L ALT 16 (<35) IU/L Alkaline Phosphatase 60 (38-126) U/L Total Creatine Kinase 68 (30-135) U/L CK-MB (CK-2) TNP CK-MB (CK-2) Rel Index TNP Troponin I 0.012 (0.01-0.034) ng/mL NT-Pro-B Natriuret Pep (<125) pg/mL Total Protein 7.7 (6.3-8.2) g/dL Albumin 4.4 (3.5-5.0) g/dL Globulin 3.3 (1.7-4.1) g/dL Albumin/Globulin Ratio 1.3 (1.0-2.8) Lipase 93 (23-300) U/L 09/30/20 09/30/20 09/30/20 Range/Units 16:41 16:41 18:55 WBC (4.5-11.0) X10^3/uL RBC (4.0-5.2) X10^6/uL Hgb (12.0-16.0) g/dL Hct (36-46) % MCV (80-100) fL MCH (26-34) PG MCHC (30-36) % RDW (11.6-14.8) % Plt Count (150-400) X10^3/uL Neut % (Auto) (50-75) % Lymph % (Auto) (25-40) % Hoke % (Auto) (3-14) % Eos % (Auto) (2-4) % Baso % (Auto) (0-2) % Neut # (Auto) (6902-0364) /uL Lymph # (Auto) (7116-0801) /uL Hoke # (Auto) (0-900) /uL Eos # (Auto) (0-450) /uL Baso # (Auto) (0-100) /uL PT (10.1-12.7) SECONDS INR (0.9-1.3) APTT (26.4-36.2) SECONDS D-Dimer < 200 (<230) ng/mL Sodium (137-145) mmol/L Potassium (3.4-5.1) mmol/L Chloride (98-107) mmol/L Carbon Dioxide (22-32) mmol/L BUN (7-17) mg/dL Creatinine (0.52-1.04) mg/dL Estimated GFR (>60) mL/min BUN/Creatinine Ratio (6-22) Glucose (70-100) mg/dL Calcium (8.4-10.2) mg/dL Total Bilirubin (0.2-1.3) mg/dL AST (14-36) IU/L ALT (<35) IU/L Alkaline Phosphatase (38-126) U/L Total Creatine Kinase (30-135) U/L CK-MB (CK-2) CK-MB (CK-2) Rel Index Troponin I < 0.012 (0.01-0.034) ng/mL NT-Pro-B Natriuret Pep 40 (<125) pg/mL Total Protein (6.3-8.2) g/dL Albumin (3.5-5.0) g/dL Globulin (1.7-4.1) g/dL Albumin/Globulin Ratio (1.0-2.8) Lipase (23-300) U/L Point of Care Testing Test Results Negative Urine Dip Bedside Urine Glucose Negative Bedside Urine Bilirubin - Negative Bedside Urine Ketone - Negative Urine Specific [place] 1.010 Bedside Urine Occult Blood - Negative Bedside Urine pH 6.0 Bedside Urine Protein - Negative Bedside Urine Urobilinogen +/- 1mg Bedside Urine Nitrite - Negative Bedside Urine Leukocytes - Negative Esterase Discharge Plan Departure Patient Disposition: Home Clinical Impression: Atypical chest pain, Abnormal ECG Instructions: DI for Atypical Chest Pain Activity Restrictions/Additional Instructions: You have been diagnosed with [atypical chest pain and abnormal EKG left bundle branch block. Two sets of cardiac enzymes were negative. Negative D-dimer test. Chest x-ray without acute cardiopulmonary findings.]. What to do: *Take your medications as directed. *Follow up with your primary care provider in 2-3 days, call for an appointment. Let them know you were seen in the ED and that we asked you to be seen in follow up. *Return to ED if you have any new, worsening, or concerning symptoms, such as [increasing or different chest pain, breathing difficulty, near syncope, unable to tolerate fluids, fever, or any acute concerns]. Referrals: Thanh Vargas MD [Physician] - <Edilma Loya DO - Last Filed: 10/02/20 18:41> [facility] ED Attending Elijah Attestation: I was immediately available in the department for consultation. Documentation has been reviewed. I agree with assessment and plan.
[2020-09-30] MEDS: ASPIRIN 81 MG CHEW TAB 324 MG PO (16:45)
[2020-09-30 17:03] LABS: Add Manual Diff / Slide Review NO; Basophils Absolute Auto 0 /uL (0-100); Basophils Percent Auto 0.5 % (0-2); Eosinophils Absolute Auto 100 /uL (0-450); Eosinophils Percent Auto 1.5 % (2-4); Hematocrit 40.1 % (36-46); Hemoglobin 13.3 g/dL (12.0-16.0); Lymphocytes Absolute Auto 1700 /uL (1100-4500); Lymphocytes Percent Auto 28.4 % (25-40); Mean Corpuscular HGB Conc 33.1 % (30-36); Mean Corpuscular Hemoglobin 27.8 PG (26-34); Monocytes Absolute Auto 500 /uL (0-900); Monocytes Percent Auto 8.4 % (3-14); Neutrophils Absolute Auto 3700 /uL (1500-7000); Neutrophils Percent Auto 61.2 % (50-75); Platelet Count 228 X10^3/uL (150-400); Red Blood Cell Count 4.77 X10^6/uL (4.0-5.2); Red Cell Distribution Width 13.5 % (11.6-14.8)
[2020-09-30 17:21] LABS: Prothrombin Time 11.6 SECONDS (10.1-12.7)
[2020-09-30 17:23] LABS: PTT Partial Thromboplastin Tim 34 SECONDS (26.4-36.2)
[2020-09-30 17:26] LABS: Alanine Aminotransferase 16 IU/L (<35); Albumin 4.4 g/dL (3.5-5.0); Albumin Globulin Ratio 1.3 (1.0-2.8); Alkaline Phosphatase 60 U/L (38-126); Aspartate Aminotransferase 33 IU/L (14-36); BUN Creatinine Ratio 18.9 (6-22); Bilirubin Total 0.6 mg/dL (0.2-1.3); Blood Urea Nitrogen 14 mg/dL (7-17); Calcium 9.5 mg/dL (8.4-10.2); Carbon Dioxide 31 mmol/L (22-32); Chloride 102 mmol/L (98-107); Creatine Kinase 68 U/L (30-135); Estimated Glomerular Filt Rate > 60.0 mL/min (>60); Globulin 3.3 g/dL (1.7-4.1); Glucose 93 mg/dL (70-100); Lipase 93 U/L (23-300); Potassium 4.7 mmol/L (3.4-5.1); Sodium 137 mmol/L (137-145); Total Protein 7.7 g/dL (6.3-8.2)
[2020-09-30 17:27] LABS: HEMOLYSIS 123 (0-50)
[2020-09-30 17:34] LABS: D Dimer < 200 ng/mL (<230)
[2020-09-30 17:35] LABS: NT-proBNP (BNP-Adult 18+) 40 pg/mL (<125)
[2020-09-30 17:37] LABS: Troponin I 0.012 ng/mL (0.01-0.034)
[2020-09-30 19:33] LABS: Troponin I < 0.012 ng/mL (0.01-0.034)
== END 2020-09-30 19:58 | disposition home or self-care (01) ==
PROVIDERS: Emergency Provider Nurse Practitioner Family
DX: R07.89 Other chest pain (principal); R94.31 Abnormal electrocardiogram [ECG] [EKG]; R06.02 Shortness of breath; I10 Essential (primary) hypertension; R42 Dizziness and giddiness; E03.9 Hypothyroidism, unspecified
CPT/HCPCS: 36415; 71045; 80053; 81003; 81025; 82550; 83690; 83880; 84484; 85025; 85379; 85610; 85730; 93005; 99281; 99284

== ENCOUNTER → 2020-11-01 09:06 | Outpatient (CLI) | payer BC, SELFPAY ==
--- NOTE | 2020-11-01 | DI.ECHO.S_ITS ---
[facility]---------+ [facility] +---------+ : : [address] : [address] [address] : : : : [phone] : : : : Phone: [phone] Echocardiogram Report + + :Name: RASHEED OSUNA Study Date: 11/01/2020 Height: 62 in : :[facility] Weight: 172 lb : : Gender: Female BSA: 1.8 m2 : :: 1970 Age: 50 yrs BP: 139/81 mmHg: :Reason For Study: ATYPICAL CHEST PAIN : :Ordering Physician: CHAD PEREZ : :[employer]P Performed By: Lynnette Ramirez : :Referring: CHAD PEREZ [employer] SERVICE REP : + + Interpretation Summary The left ventricle is normal in size and wall thickness. Left ventricular systolic function is normal. The ejection fraction is estimated to be 50-55%. There are no focal wall motion abnormalities. Diastolic parameters suggest probable normal left ventricular diastolic function and normal filling pressures. The right ventricle is normal in size and function. Pulmonary artery pressures cannot be estimated because of the lack of a measurable TR jet velocity but the IVC suggests a CVP of around 3 mmHg. The left atrium is borderline dilated. The right atrium is borderline dilated. There is mild to moderate mitral regurgitation. There is no other significant valvular heart disease. The aortic root is normal size. Procedure: A two-dimensional transthoracic echocardiogram with color flow and Doppler was performed. The study quality was technically adequate. There is no prior echocardiogram noted for this patient. The heart rate ranged between 62-82 bpm during the study. Left Ventricle: The left ventricle is normal in size and wall thickness. Left ventricular systolic function is normal. The ejection fraction is estimated to be 50-55%. There is a mild dyssynchronous contraction pattern, consistent with a conduction abnormality. There are no focal wall motion abnormalities. Diastolic parameters suggest probable normal left ventricular diastolic function and normal filling pressures. Right Ventricle: The right ventricle is normal in size and function. Atria: The left atrium is borderline dilated. The right atrium is borderline dilated. There is no Doppler evidence for an interatrial shunt. Mitral Valve: The mitral valve is normal in structure and function. There is mild to moderate mitral regurgitation. Aortic Valve: The aortic valve is trileaflet. The aortic valve opens well. There is no aortic valve stenosis. No aortic regurgitation is present. Tricuspid Valve: The tricuspid valve is normal in structure and function. Pulmonary artery pressures cannot be estimated because of the lack of a measurable TR jet velocity but the IVC suggests a CVP of around 3 mmHg. There is trace tricuspid regurgitation. Pulmonic Valve: The pulmonic valve leaflets are thin and pliable; valve motion is normal. There is trace pulmonic regurgitation. There is no other significant valvular heart disease. Great Vessels: The aortic root is normal size. The dimensions of the ascending aorta are normal. The IVC is of normal diameter and collapses greater than 50% with a sniff. This suggests a low right atrial pressure of 3 mm Hg. Pericardium/ Pleura There is no pericardial effusion. There is no pleural effusion. MMode/2D Measurements & Calculations LVIDd: 4.7 cm LVOT diam: 2.0 cm LVIDs: 3.0 cm Ao root diam: 2.9 cm FS: 35.0 % asc Aorta Diam: 3.1 cm EPSS: 1.3 cm Ao Arch Diam (Prox Trans): 2.3 cm IVSd: 0.83 cm LVPWd: 0.95 cm LV gage. diameter/BSA (cm/m^2): 2.6 LV sys. diameter/BSA (cm/m^2): 1.7 LA A2 area: 20.6 cm2 RA long axis: 5.4 cm LA A4 area: 17.8 cm2 RA area: 18.7 cm2 LA length (vol): 5.6 cm RA vol: 55.0 ml LA vol: 56.1 ml RA : 30.7 ml/m2 LA vol index: 31.3 ml/m2 IVC diam: 1.6 cm RVD1 (basal): 2.9 cm TAPSE: 1.8 cm Doppler Measurements & Calculations Ao V2 max: 157.2 cm/sec LVOT Max Mumtaz: 100.6 cm/sec Ao V2 mean: 103.7 cm/sec LV V1 max P.0 mmHg Ao max P.9 mmHg LV V1 VTI: 20.9 cm Ao mean P.0 mmHg RENÉE(I,D): 2.0 cm2 Ao V2 VTI: 31.2 cm RENÉE(V,D): 1.9 cm2 sev ratio: 0.67 RENÉE indexed to BSA (cm^2/m^2): 1.1 MV E max mumtaz: 94.8 cm/sec PA V2 max: 61.3 cm/sec MV A max mumtaz: 84.9 cm/sec PA V2 mean: 45.7 cm/sec MV E/A: 1.1 PA mean P.92 mmHg Med Peak E' Mumtaz: 8.0 cm/sec PA pr(Accel): 41.3 mmHg E/E' med: 11.8 Lat Peak E' Mumtaz: 9.2 cm/sec E/E' lat: 10.3 E/e' average: 11.1 MV dec time: 0.14 sec SV(LVOT): 62.5 ml Reading Physician:07:02 PM
== END ==
PROVIDERS: PCP Family Medicine; Referring Provider Nurse Practitioner Family; Visit Provider Nurse Practitioner Family
DX: I34.0 Nonrheumatic mitral (valve) insufficiency (principal); R07.89 Other chest pain
CPT/HCPCS: 93306

== ENCOUNTER → 2022-07-27 07:30 | Outpatient (CLI) | payer BC, SELFPAY ==
--- NOTE | 2022-07-27 | DI.MG.S_ITS ---
BILATERAL DIGITAL SCREENING MAMMOGRAM 3D/2D WITH CAD: 07/27/2022 CLINICAL: Baseline by default. No prior exams were available for comparison. Both breasts are heterogeneously dense, which may obscure small masses (category c / 51-75% glandular tissue). Current study was also evaluated with a Computer Aided Detection (CAD) system. There are grouped calcifications in the left breast at 12 o'clock anterior depth. No other significant masses, calcifications, or other findings are seen in either breast. IMPRESSION: INCOMPLETE: NEEDS ADDITIONAL IMAGING EVALUATION The grouped calcifications in the left breast are indeterminate. Additional views with possible ultrasound are recommended. Based on the Tyrer Cuzick model (a risk assessment model) the patient's lifetime risk is 9.4% and her 10 year risk is 2.4%. According to the ACR, ACS, and NCCN guidelines, an annual breast MRI exam along with mammogram is recommended if the patient's lifetime risk is 20% or greater. This exam was interpreted at Station ID: [id number]. NOTE: For mammograms, a report in lay terms will be sent to the patient. Approximately 15% of breast malignancies will not be visualized mammographically. In the management of a palpable breast mass, a negative mammogram must not discourage biopsy of a clinically suspicious lesion. Electronically Signed By: Ruel Gaitan M.D. lc/:07/27/2022 08:20:41 letter sent: Additional Imaging Needed ACR BI-RADS Category 0: Incomplete [id number]
--- NOTE | 2022-07-27 | DI.RAD.S_ITS ---
PROCEDURE: XR HAND LT MIN 3V INDICATIONS: BILATERAL HAND PAIN TECHNIQUE: 3 views of the hand acquired. COMPARISON: None. FINDINGS: Bones: No acute fractures or dislocations. Carpal bones are normally aligned. No suspicious bony lesions. Moderate degenerative changes are seen in the 1st carpometacarpal joint with joint space narrowing, subchondral sclerosis, and marginal osteophytes. More mild degenerative changes are seen at the 1st metacarpophalangeal and 1st interphalangeal joints and throughout the interphalangeal joints of the fingers. Mild joint space narrowing at the triscaphe and radiocarpal joints. No focal osseous erosion is seen. Soft tissues: No suspicious soft tissue calcifications. 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 Dictated by: Arun Emery M.D. on 07/27/2022 at 8:30 Approved by: Arun Emery M.D. on 07/27/2022 at 8:45
--- NOTE | 2022-07-27 | DI.RAD.S_ITS ---
PROCEDURE: XR HAND RT MIN 3V INDICATIONS: BILATERAL HAND PAIN TECHNIQUE: Three views of the hand acquired. COMPARISON: None. FINDINGS: Bones: No acute fractures or dislocations. Carpal bones are normally aligned. No suspicious bony lesions. There is [id number] joint space narrowing at the 1st carpometacarpal joint with mild subchondral sclerosis and marginal osteophyte formation. Mild degenerative changes are seen throughout the interphalangeal joints of the fingers and at the 1st metacarpophalangeal joint and triscaphe joint. No focal osseous erosion. Soft tissues: No suspicious soft tissue calcifications. No focal soft tissue edema. IMPRESSION: [id number] osteoarthrosis is most prominent at the 1st carpometacarpal joint. Dictated by: Arun Emery M.D. on 07/27/2022 at 8:45 Approved by: Arun Emery M.D. on 07/27/2022 at 8:46
--- NOTE | 2022-07-27 | DI.US.S_ITS ---
PROCEDURE: US THYROID INDICATIONS: Nontoxic single thyroid nodule/baseline by default TECHNIQUE: Real-time scanning was performed of the thyroid gland, with image documentation. COMPARISON: None. FINDINGS: Right: Thyroid lobe measures 5.6 x 1.3 x 1.4 cm, and is homogeneous in echotexture. Left: Thyroid lobe measures 5.6 x 1.2 x 1.7 cm, and is homogenous in echotexture. Isthmus: 0.3 cm thick. A single nodule measuring less than 5 mm is seen in the left lobe of the thyroid, which does not require dedicated imaging follow-up. IMPRESSION: No suspicious thyroid nodule. ACR TI-RADS definitions and recommendations: TI-RADS 1 (benign): 0 points. FNA not needed. TI-RADS 2 (not suspicious): 2 points. FNA not needed. TI-RADS 3 (mildly suspicious): 3 points. * FNA if 2.5 cm or larger, follow up if 1.5 cm or larger (at 1, 3, and 5 years). TI-RADS 4 (moderately suspicious): 4-6 points. * FNA if 1.5 cm or larger, follow up if 1 cm or larger (at 1, 2, 3, and 5 years). TI-RADS 5 (highly suspicious): 7 points or more. * FNA if 1 cm or larger, follow up if 0.5 cm or larger (every year for 5 years). Dictated by: Arun Emery M.D. on 07/27/2022 at 9:04 Approved by: Arun Emery M.D. on 07/27/2022 at 9:06
== END ==
PROVIDERS: PCP Internal Medicine; Referring Provider Internal Medicine; Visit Provider Internal Medicine
DX: Z12.31 Encounter for screening mammogram for malignant neoplasm of breast (principal); E04.1 Nontoxic single thyroid nodule; R92.1 Mammographic calcification found on diagnostic imaging of breast; M19.041 Primary osteoarthritis, right hand; M19.042 Primary osteoarthritis, left hand
CPT/HCPCS: 73130; 76536; 77063; 77067